=== PATIENT | female | born 1955 | race Caucasian/White ===

== ENCOUNTER 2017-09-05 18:20 | Observation (INO) | payer BC ==
[~2017-09-05] VITALS: Ht 170.2 cm; Wt 57.6 kg
--- NOTE | ~2017-09-05 | EKG ---
[place] [address] [facility] [place] [address] ELECTROCARDIOGRAM REPORT Name: STACEY MERRILL [id number] Admission: 09/05/17 Attend Phys: Discharge: Date of : 53 Report #: [id number] THIS REPORT FOR: //name// [facility] ED Test Date: 2017-09-05 Test Time: 19:54:14 Pat Name: STACEY MERRILL Department: Room: Gender: F Scale Balancer: [id number] : 1955 Requested By: Chintan Navarro Order Number: [id number] MD: Seb Vizcarra Measurements Intervals [place] Rate: 52 P: 75 AK: 151 QRS: 37 QRSD: 83 T: 57 QT: 419 QTc: 390 Interpretive Statements Sinus rhythm Atrial premature complex Low voltage, extremity leads No previous ECG available for comparison Electronically Signed On 09-05-2017 21:24:30 CDT by Seb Vizcarra [email or web address] <ELECTRONICALLY SIGNED> By: Seb Vizcarra MD 09/05/172123 53 53 Seb Vizcarra MD /OPAL
[2017-09-05 18:21] VITALS: BP 146/85
[2017-09-05] MEDS ORDERED: AMBIEN 5 MG TABL5 M1 (19:27)
[2017-09-05] MEDS ORDERED: PROZAC20 MG PO (19:27)
[2017-09-05] MEDS ORDERED: ETODOLAC 400 M400 M1 PO (19:28)
[2017-09-05] MEDS ORDERED: HYDROXYZINE HCL25 M1 PO (19:28)
[2017-09-05] MEDS ORDERED: LORTAB PO (19:29)
[2017-09-05 19:52] LABS: HEMOGLOBIN 13.3 gm/dL (12.0-15.0); RDW 14.3 % (10.5-14.5)
[2017-09-05 19:54] LABS: ABSOLUTE NEUTROPHILS 2.5 thou/uL (1.4-8.2); BASOPHILS 1.1 % (0.0-2.0); EOSINOPHILS 3.8 % (0.0-3.0); HEMATOCRIT 39.8 % (37.0-47.0); MCH 29.6 pg (26.0-34.0); MCHC 33.3 g/dL (28.0-37.0); MONOCYTES 7.8 % (1.0-8.0); PLATELET COUNT 275 thou/uL (150-400); POLYS 44.3 % (36.0-66.0); RBC 4.47 mil/uL (4.20-5.00); WBC 5.6 thou/uL (4.0-11.0)
[2017-09-05 19:56] LABS: MANUAL DIFF NO
[2017-09-05 20:00] LABS: ANION GAP 9 mmol/L (7-16); BUN 20 mg/dL (7-18); CALCIUM 9.6 mg/dL (8.5-10.1); CHLORIDE 101 mmol/L (98-107); CO2 29 mmol/L (21-32); CREATININE 0.9 mg/dL (0.6-1.0); GLUCOSE 118 mg/dL (74-106); POTASSIUM 3.8 mmol/L (3.5-5.1); SODIUM 139 mmol/L (136-145)
[2017-09-05 20:04] LABS: APTT 28.6 Seconds (24.5-32.8)
[2017-09-05 20:09] LABS: ALBUMIN 4.1 g/dL (3.4-5.0); ALKALINE PHOSPHATASE 85 U/L (46-116); MAGNESIUM 2.3 mg/dL (1.8-2.4); SGOT 18 U/L (15-37); SGPT 19 U/L (30-65); TOTAL BILIRUBIN 0.4 mg/dL (<0.1-1.0); TOTAL PROTEIN 7.6 g/dL (6.4-8.2); TROPONIN-I < 0.04 ng/mL (<0.04-0.07)
[2017-09-05 21:02] LABS: URINE BILIRUBIN 3+ (Negative); URINE BLOOD NEGATIVE (Negative); URINE COLOR YELLOW; URINE GLUCOSE-RANDOM* NEGATIVE (Negative); URINE KETONES NEGATIVE (Negative); URINE NITRITE NEGATIVE (Negative); URINE PROTEIN (DIPSTICK) NEGATIVE (Negative); URINE UROBILINOGEN 0.2 E.U./dl (0.2-1.0)
[2017-09-05 21:05] LABS: ICTOTEST (BILI CONFIRMATORY) Positive (Negative)
[2017-09-05 23:42] VITALS: BP 127/70
[2017-09-06 04:20] VITALS: BP 95/54
[2017-09-06 07:25] LABS: CHOLESTEROL 228 mg/dL (<200); HDL CHOLESTEROL 72 mg/dL (>40); LDL CHOLESTEROL 131 mg/dL (<100); TC:HDL 3.2 Ratio (Not establshd); TRIGLYCERIDE 129 mg/dL (<150); VLDL 26 mg/dL (<40)
[2017-09-06 07:38] LABS: SERUM ASSESSMENT Clear
[2017-09-06 09:03] VITALS: BP 131/60
[2017-09-06 12:28] VITALS: BP 121/67
[2017-09-06 13:03] VITALS: BP 121/67
== END 2017-09-06 13:31 | disposition home or self-care (01) ==
LOC: ER 18:20 → EROBS 22:28 → 3W 23:45
PROVIDERS: Emergency Medicine; Nurse Practitioner Family
DX: G51.0 Bell's palsy (principal); M54.9 Dorsalgia, unspecified; G89.29 Other chronic pain; G47.00 Insomnia, unspecified; F32.9 Major depressive disorder, single episode, unspecified